=== PATIENT | female | born 1995 | race Caucasian/White ===

== ENCOUNTER 2020-08-19 17:40 | Outpatient (CLI) | payer OTHER, SELFPAY ==
[2020-08-19] VITALS (33 sets, daily range): BP systolic 110–134; BP diastolic 56–76; PULSE 93–111; RESP 18; TEMP 35.3–37.1; O2SAT 94–100; BMI 24.5
[2020-08-19] MEDS: Lactated Ringers 1,000 ML 50 ML IV (19:00)
--- NOTE | 2020-08-19 19:04 | OB.TRI.HP_ITS ---
- Problem List (1) labor in third trimester Status: Acute (2) Status: Acute History of Present Illness Date of Service: 08/19/20 Was patient seen by the physician?: Yes Reason For Visit: RULE OUT LABOR Date of Service: 08/19/20 Final EL: 10/30/20 Final EL Source: LMP Gestational age: 29 Weeks and 5 Days History of Present Illness: 24-year-old G1, P0 at 29 weeks 5 days presenting for abdominal pain. Patient receives care from a restorative aide. Dated based on the last menstrual period. Patient did have an ultrasound done earlier this that was suggestive of a fibroid in the lower uterine segment. Patient reports that abdominal pain is diffuse. Reports that she had an episode of vaginal bleeding approximately 3 nights ago. Bleeding only lasted overnight and then resolved. Reports that pain then began approximately 2 days ago. Does endorse occasional abdominal tightening. She was checked by her restorative aide earlier today and was found to be 1 cm. Patient found to be robles regularly and 2/70/-2 on exam. Allergies No Known Allergies Allergy (Verified 08/19/20 18:04) Review of Systems Constitutional: Denies: Chills, Fever Cardiovascular: Denies: Chest Pain, Palpitations Respiratory: Denies: Cough Gastrointestinal: Denies: Abdominal Pain, Nausea, Vomiting Genitourinary: Denies: Dysuria, Frequency Gynecological: Denies: Vaginal bleeding, Vaginal discharge, Vaginal itching Psychiatric: Denies: Anxiety, Depression Physical Exam General: Alert, Oriented x3, Cooperative, No apparent distress, Well developed, Well nourished HEENT: Atraumatic, PERRLA, EOMI, Normocephalic Cardiovascular: Regular rate Lungs: Normal air movement Abdomen: Soft, Non-Distended, Tender - mildly TTP diffusely, Appropriate for Gestational Age Extremities:: No edema Neurological: Cranial nerves II-XII grossly intact, Neuro grossly intact 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 -Patient does have a known lower uterine segment fibroid per her restorative aide, however no ultrasound records available at this prior imaging. -Discussed with patient that given that she is 2 cm dilated and robles, I am concerned for labor. Discussed that I recommend that she be transferred to a higher level of care for treatment of labor to ensure that there are adequate NICU capabilities if she were to deliver. All questions answered. -Magnesium sulfate started for neuroprotection. -Loading dose of indomethacin given for tocolysis. -Betamethasone administered for lung maturity. -Penicillin started for GBS prophylaxis. -Vertex by bedside ultrasound. -Patient discussed with Dr. Trivedi for maternal- medicine who accepts the transport. Multi Select Codes - Visit Charges Office Visit/Consults: 78367 OV L3 New - Urinary/Genital Urinary/Genital CPT Codes: 27292-28 non-stress test Interp
[2020-08-19] MEDS: Betamethasone/Betamethasone 30 MG/5 ML Vial 12 MG IM (19:10)
[2020-08-19] MEDS: Magnesium Sulfate 4gm/100mL 4 GM/100 ML IV.SOLN. IV (19:11)
[2020-08-19 19:29] LABS: Absolute Lymphocyte Count 1.82 X10^3/uL (0.83-4.51); Absolute Neutrophil Count 8.8 X10^3/uL (2.0-7.7); Basophil# 0.06 X10^3/uL; Basophil% 0.5 % (0-1); Eosinophil# 0.11 X10^3/uL; Eosinophils% 0.9 % (0-5); Hematocrit 32.4 % (37-47); Hemoglobin 11.1 g/dL (12.0-15.0); Lymphocyte # 1.82 X10^3/ul (4.0); Lymphocyte % 15.2 % (19-41); Mean Corp Hgb Conc 34.3 g/dL (32-36); Mean Corpuscular Hgb 30.7 pg (27.0-32.0); Mean Corpuscular Volume 89.8 fL (81-99); Mean Platelet Vol. 8.2 fl (6.2-12.0); Monocyte% 6.7 % (0-10); NRBC Flagged by Analyzer 0 % (0-5); Neutrophil # 8.75 X10^3/uL (2.7-7.7); Neutrophil % 73.1 % (47-70); Platelet Count 187 K/mm3 (150-450); RBC Distribution Width SD 42.1 fl (35.1-43.9); Red Blood Count 3.61 M/mm3 (4.2-5.4)
[2020-08-19] MEDS: Magnesium Sulfate 4gm/100mL 2 GM/50 ML IV.SOLN. IV (19:39)
[2020-08-19] MEDS: Indomethacin 25 MG Capsule 50 MG PO (19:42)
[2020-08-19] MEDS: Magnesium Sulfate 20 GM/500 ML BAG IV (19:49)
== END 2020-08-19 21:35 | disposition short-term general hospital (02) ==
LOC: WPOUT 18:02 → WP 18:02
PROVIDERS: Visit Provider Obstetrics & Gynecology
DX: O60.03 Preterm labor without delivery, third trimester (principal); Z3A.29 29 weeks gestation of pregnancy
CPT/HCPCS: 96360; 96361; 59025; 59050; 85025; 86850; 86900; 86901; 96372; 99218; J7120; G0378; J0702

== ENCOUNTER 2020-09-09 15:35 | Outpatient (CLI) | payer SELFPAY ==
[2020-09-09 15:33] VITALS: BMI 25.4
[2020-09-09 15:45] VITALS: BMI 22.6
[2020-09-09 16:02] VITALS: BP 111/68; PULSE 100
[2020-09-09] MEDS: Lactated Ringers 1,000 ML 999 ML IV (16:17)
--- NOTE | 2020-09-09 16:17 | US_ITS ---
We are attempting to reach an attending provider to discuss findings. An addendum with communication details will be sent when the communication is complete. STUDY: SECOND AND THIRD TRIMESTER OBSTETRICAL ULTRASOUND - LIMITED REASON FOR EXAM: Female, 24 years old. well being. Vaginal bleeding since Saturday. labor. History of uterine fibroid. LMP: 01/24/2020. PRIOR ULTRASOUND: None. TECHNIQUE: Transabdominal TECHNICAL QUALITY: Adequate. FINDINGS: There is a single intrauterine fetus. The fetus is in a cephalic presentation. There is demonstrated cardiac activity with a heart rate of 153 bpm. There is a normal amniotic fluid volume. The largest amniotic fluid pocket measures 2.67 cm. The amniotic fluid index (CRISTINA) is 8.5 to cm. The placenta is fundal and anterior are not low lying. There are Grade 1 placental changes. The cervix measures 3.45 cm in length. The cervix appears open. There is a 6.7 x 9.5 x 6.1 cm mass, thought to be a fibroid, in the anterior uterine wall. Age by LMP: 32 weeks, 5 days. EL by LMP: 10/30/2020. US/OB Limited (No Biometrics) IMPRESSION: 1. Limited OB ultrasound. 2. What appears to be an open cervix measuring 3.45 cm in length. 3. Live single intrauterine in a vertex presentation. Fetus is 32 weeks 5 days by last menstrual period. 4. CRISTINA of 8.52 cm. Fundal anterior grade 1 placenta. 5. Probable anterior uterine fibroid. Electronically Signed: Zaki Thompson DO at 18:16 EST Tel [phone], Service support ,
[2020-09-09 16:42] LABS: Absolute Neutrophil Count 7.7 X10^3/uL (2.0-7.7); Basophil# 0.05 X10^3/uL; Basophil% 0.5 % (0-1); Eosinophil# 0.08 X10^3/uL; Eosinophils% 0.7 % (0-5); Hematocrit 29.4 % (37-47); Hemoglobin 10.1 g/dL (12.0-15.0); Lymphocyte % 16.7 % (19-41); Mean Corp Hgb Conc 34.4 g/dL (32-36); Mean Corpuscular Hgb 31.1 pg (27.0-32.0); Mean Corpuscular Volume 90.5 fL (81-99); Mean Platelet Vol. 8.5 fl (6.2-12.0); Monocyte# 0.77 X10^3/uL; Monocyte% 7.1 % (0-10); NRBC Flagged by Analyzer 0 % (0-5); Neutrophil % 71.4 % (47-70); Platelet Count 183 K/mm3 (150-450); RBC Distribution Width CV 13.6 % (11.6-14.6); RBC Distribution Width SD 44.7 fl (35.1-43.9); Red Blood Count 3.25 M/mm3 (4.2-5.4); White Blood Count 10.8 K/mm3 (4.4-11.0)
[2020-09-09 16:55] LABS: Prothrombin Time (Protime)PT. 12.5 SECONDS (11.7-14.9)
--- NOTE | 2020-09-09 16:55 | PCM.HPOB.BLA ---
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 Dee Quintanilla MD) History of thyroid disorder (Acute) Family History (Updated 09/09/20 @ 14:45 by Katya Spring) Unknown Diabetes Hypertension Social History (Updated 09/09/20 @ 16:[address] 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 today she saturated the equivalent of a large pad. she has had mild contractions no known LOF. she has good fm. she was [facility] and was discharged home after being stable. OB Visit EL Calculator Estimated Delivery Date Method Current WG Current Estimate 10/28/20 LMP (Certain) 33w 0d Initial Weight: Not Recorded Date EGA Weight BP Urine Prot Glucose FHR FuHt Pres Dilation Effaced St Visit Note 09/09/20 33w 0d 130 lb 122/76 150 SM- admitted for bleeding. Diagnostics Diagnostics Diagnostics Blood Type Pending 09/09/20 Antibody Screen Pending 09/09/20 Hgb Pending 09/09/20 Hct Pending 09/09/20 Details: HIV: Urine Culture: Sequential Screen: NIPT Screen: ROS Const Reports as per HPI, Denies fever(s) ENT Reports system reviewed and no additional complaints, except as docu Card Reports system reviewed and no additional complaints, except as docu Resp Reports system reviewed and no additional complaints, except as docu GI Reports as per HPI Reports as per HPI, Reports abnormal vaginal bleeding Musc Reports system reviewed and no additional complaints, except as docu Skin/Breast Reports system reviewed and no additional complaints, except as docu Neuro Yes system reviewed and no additional complaints, except as docu Endo Reports system reviewed and no additional complaints, except as docu Exam Const General: healthy appearing, comfortable, no acute distress HENMT Head: normal to inspection, normocephalic Neck Neck: no lymphadenopathy noted Thyroid: thyroid normal Chest Chest palpation & inspection: normal inspection of the chest Resp Effort & Inspection: normal respiratory effort Cardio Rate: regular rate Rhythm: regular rhythm GI Inspection: normal to inspection Palpation: soft, nontender External Female Exam: normal external appearance Speculum Exam - Vagina: normal appearance of the vagina, vaginal bleeding Bimanual Exam- Vagina & Uterus: uterine shape normal, uterus non-tender OB/External & Speculum: vaginal bleeding Speculum Exam: vaginal bleeding Skin General: no rashes or lesions noted Neuro General: no focal motor deficits Extrem General: normal to inspection, no pedal edema Psych Appearance: grossly normal Assessment & Plan Problems 1. labor in third trimester O60.03 stable 3 cm 2. Placental abruption in third trimester O45.93 recommend STO and serial labs 3. Z34.90 previous care with [facility] 4. Uterine fibroid during , antepartum O34.10; D25.9 right lower anterior Plan plan admit for STO s/p bmz two weeks ago covid testing ultrasound. serial labs and continuous monitoring Coding Level of Care Code OB Routine Diagnoses labor in third trimester O60.03 Placental abruption in third trimester O45.93 Z34.90 Uterine fibroid during , antepartum O34.10; D25.9 Multi Select Codes - Visit Charges Observation E&M Codin Initial observation care L3
[2020-09-09 16:56] LABS: Partial Thromboplast Time 24.5 Seconds (24.1-36.2)
[2020-09-09 17:00] LABS: Fibrinogen 613 mg/dl (203-444)
[2020-09-09] MEDS: Lactated Ringers 1,000 ML 15 ML IV (17:25)
[2020-09-09 19:20] VITALS: BP 118/68; PULSE 100
[2020-09-09 19:21] VITALS: TEMP 36.7; O2SAT 97
[2020-09-09] MEDS: Lactated Ringers 500 ML IV.SOLN. IV (22:28)
[2020-09-09] MEDS: Lactated Ringers 1,000 ML 100 ML IV (23:05)
[2020-09-10] VITALS (11 sets, daily range): BP systolic 89–120; BP diastolic 52–87; PULSE 82–97; RESP 16; TEMP 35.7–36.9; O2SAT 97–99
[2020-09-10 04:11] LABS: Hematocrit 26.9 % (37-47); Hemoglobin 8.9 g/dL (12.0-15.0); Mean Corp Hgb Conc 33.1 g/dL (32-36); Mean Corpuscular Hgb 30.4 pg (27.0-32.0); Mean Corpuscular Volume 91.8 fL (81-99); Mean Platelet Vol. 8.5 fl (6.2-12.0); Platelet Count 141 K/mm3 (150-450); RBC Distribution Width CV 13.7 % (11.6-14.6); RBC Distribution Width SD 45.4 fl (35.1-43.9); Red Blood Count 2.93 M/mm3 (4.2-5.4); White Blood Count 9.3 K/mm3 (4.4-11.0)
[2020-09-10 04:23] LABS: Fibrinogen 521 mg/dl (203-444)
--- NOTE | 2020-09-10 08:00 | US_ITS ---
STUDY: OBSTETRICAL ULTRASOUND - BIOPHYSICAL PROFILE REASON FOR EXAM: Female, 24 years old WELL BEING LMP: 01/24/2020 PRIOR ULTRASOUND: 09/09/2020 TECHNIQUE: Transabdominal TECHNICAL QUALITY: Adequate. FINDINGS: There is a single intrauterine fetus. The fetus is in a cephalic presentation. There is demonstrated cardiac activity with a heart rate of 153 bpm. There is a normal amniotic fluid volume. The largest amniotic fluid pocket measures 4.9 cm. The amniotic fluid index (CRISTINA) is 11.5 cm. The placenta is fundal in location. There are Grade 1 placental changes. Within the right side of the uterus there is an 8 cm fibroid. Age by LMP: 32 weeks, 6 days. EL by LMP: 10/30/2020. BIOPHYSICAL PROFILE: Breathing Movements (FBM): 2 Gross Body Movements (GBM): 2 Tone (FT): 2 Amniotic Fluid Volume (AFV): 2 TOTAL SCORE: US/Biophysical Prof W/O Non Stres IMPRESSION: Normal biophysical profile of 05/07. Electronically Signed: Kyle Tran MD at 8:43 EST Tel , Service support ,
[2020-09-10] MEDS: Lactated Ringers 1,000 ML 100 ML IV ×2 (11:35→12:07)
[2020-09-10] MEDS: Sodium Ferric Gluconat 250 MG in 0.9% Normal Saline 250 ML 135 MG IV (13:29)
--- NOTE | 2020-09-10 14:14 | PN.OBGYN_ITS ---
Patient Problems: Active and Suspected Problems (Last Updated 09/09/20 @ 14:45 by Katya Spring) Uterine fibroid during , antepartum (Acute) right lower anterior Placental abruption in third trimester (Acute) recommend STO and serial labs labor in third trimester (Acute) stable 3 cm (Acute) previous care with [facility] Subjective: minimal bleeding only brown discharge, no ctx good fm no LOF overnight- 4 prolonged decels down to 60s-70s lasting 4-5 minutes with good recovery and moderate variability, reactive tracing after. - Physical Exam Vitals/I&O's: Vital Signs Temp Pulse Resp BP Pulse Ox 97.4 F L 89 16 108/58 L 98 09/10/20 11:39 09/10/20 11:40 09/10/20 11:39 09/10/20 11:39 09/10/20 11:40 Oxygen Delivery Method Room Air Weight: 127 lb 10.362 oz Body Mass Index (BMI) 22.6 Intake and Output for Last 24 Hours 09/08/20 09/09/20 09/10/20 23:59 23:59 23:59 Intake Total 1075.75 / 1075.75 1000 / 1000 Balance 1075.75 / 1075.75 1000 / 1000 General: Alert, Oriented x3 Abdomen: Soft, Non Tender, Gravid Extremities: No edema Microbiology Past 72 Hours 09/09/20 16:35 Mucosa - Nose SARS-CoV-2 Antigen (Rapid) - Final Laboratory Results 09/09/20 16:05: Blood Type B POSITIVE, Antibody Screen NEGATIVE 09/09/20 16:05: WBC 10.8, RBC 3.25 L, Hgb 10.1 L, Hct 29.4 L, MCV 90.5, MCH 31.1, MCHC 34.4, RDW Std Deviation 44.7 H, RDW Coeff of Valerie 13.6, Plt Count 183, MPV 8.5, Immature Gran % (Auto) 3.600 H, Neut % (Auto) 71.4 H, Lymph % (Auto) 16.7 L, Wilkinson % (Auto) 7.1, Eos % (Auto) 0.7, Baso % (Auto) 0.5, Absolute Neuts (auto) 7.7, Absolute Lymphs (auto) 1.80, Nucleated RBC % 0 09/09/20 16:05: PT 12.5, INR 1.0, APTT 24.5, Fibrinogen 613 H 09/10/20 04:03: WBC 9.3, RBC 2.93 L, Hgb 8.9 L, Hct 26.9 L, MCV 91.8, MCH 30.4, MCHC 33.1, RDW Std Deviation 45.4 H, RDW Coeff of Valerie 13.7, Plt Count 141 L, MPV 8.5 09/10/20 04:03: Fibrinogen 521 H Current Medications Lactated Ringer's () 1,000 mls @ 15 mls/hr IV .Q48H [facility] Last Admin: 09/10/20 11:35 Dose: 100 mls/hr Documented by: Lactated Ringer's () 1,000 mls @ 100 mls/hr IV .Q10H [facility] Last Admin: 09/10/20 12:07 Dose: 100 mls/hr Documented by: Ferric Sodium Gluconate Complex 125 mg/ Sodium Chloride 110 mls @ 110 mls/hr IV X1 ONE Stop: 09/10/20 16:29 Ferric Sodium Gluconate Complex 250 mg/ Sodium Chloride 270 mls @ 135 mls/hr IV X1 ONE Stop: 09/10/20 15:29 Last Admin: 09/10/20 13:29 Dose: 135 mls/hr Documented by: Medical Necessity - Tobacco Use Smoking Status: Never smoker Assessment/Plan All Active Problems (Last Updated 09/09/20 @ 14:45 by Katya Spring) Uterine fibroid during , antepartum (Acute) Placental abruption in third trimester (Acute) labor in third trimester (Acute) (Acute) 24-year-old G1, P0 at 32 weeks 4 days presents with vaginal bleeding, suspected chronic abruption Patient has large uterine fibroid, placenta is implanted on the opposite side of the uterus from this. Patient has had threatened labor but has made no cervical change. Fibrinogen is stable. Patient has anemia likely secondary to chronic blood loss in the with abruption. Will give IV Venofer for this. Biophysical profile 8 out of 8 and overall reassuring today. Continuous monitoring overall reassuring. Discussed with the patient and her unclear significance of heart rate decelerations although I am concerned this is due to to chronic placental abruption that increases the risk for compromise or demise and maternal complication of hemorrhage. 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 I discussed the risk of loss if she leaves at this point because I cannot guarantee the safety of the and she lives 30 minutes away. Multi Select Codes - Visit Charges Observation E&M Codin Subsequent observation care L3 - Urinary/Genital Urinary/Genital CPT Codes: 97567-28 non-stress test Interp
[2020-09-10] MEDS: Sodium Ferric Gluconat 125 MG in 0.9% Normal Saline 100 ML 110 MG IV (15:26)
[2020-09-10] MEDS: 0.9% Saline Lock 10 ML Syringe IV (21:25)
[2020-09-11 03:09] VITALS: BP 99/58; PULSE 88; TEMP 36.4; O2SAT 98; O2SAT 99
[2020-09-11 06:26] LABS: Absolute Lymphocyte Count 1.65 X10^3/uL (0.83-4.51); Absolute Neutrophil Count 7.4 X10^3/uL (2.0-7.7); Basophil# 0.08 X10^3/uL; Basophil% 0.8 % (0-1); Eosinophil# 0.11 X10^3/uL; Eosinophils% 1.1 % (0-5); Hemoglobin 9.6 g/dL (12.0-15.0); Lymphocyte # 1.65 X10^3/ul (4.0); Lymphocyte % 15.8 % (19-41); Mean Corp Hgb Conc 34.3 g/dL (32-36); Mean Corpuscular Hgb 31.7 pg (27.0-32.0); Mean Corpuscular Volume 92.4 fL (81-99); Monocyte# 0.74 X10^3/uL; Monocyte% 7.1 % (0-10); NRBC Flagged by Analyzer 0 % (0-5); Neutrophil # 7.41 X10^3/uL (2.7-7.7); Neutrophil % 70.8 % (47-70); Platelet Count 166 K/mm3 (150-450); RBC Distribution Width CV 14.1 % (11.6-14.6); RBC Distribution Width SD 46.4 fl (35.1-43.9); Red Blood Count 3.03 M/mm3 (4.2-5.4); White Blood Count 10.5 K/mm3 (4.4-11.0)
[2020-09-11 07:05] LABS: Fibrinogen 603 mg/dl (203-444)
--- NOTE | 2020-09-11 07:33 | PN.OBGYN_ITS ---
Patient Problems: Active and Suspected Problems (Last Updated 09/09/20 @ 14:45 by Katya Spring) Uterine fibroid during , antepartum (Acute) right lower anterior Placental abruption in third trimester (Acute) recommend STO and serial labs labor in third trimester (Acute) stable 3 cm (Acute) previous care with [facility] Subjective: patient denies signficant bleeding no lof good fm no regular ctx, no pain Objective: fht 130 moderate variability reactive no decelerations category I tracing. 3 isolated decels overnight prolonged 3-4 minutes to 70s, good recovery [place]: no regular now ,some irritability overnight - Physical Exam Vitals/I&O's: Vital Signs Temp Pulse Resp BP Pulse Ox 97.6 F L 88 16 99/58 L 98 09/11/20 03:09 09/11/20 03:09 09/10/20 15:10 09/11/20 03:09 09/11/20 03:09 Oxygen Delivery Method Room Air Weight: 127 lb 10.362 oz Body Mass Index (BMI) 22.6 Intake and Output for Last 24 Hours 09/09/20 09/10/20 09/11/20 23:59 23:59 23:59 Intake Total 1075.75 / 1075.75 3286.58 / 3286.58 Balance 1075.75 / 1075.75 3286.58 / 3286.58 General: Alert, Oriented x3 Lungs: Normal air movement Cardiovascular: Regular rate Abdomen: Soft, Non Tender Microbiology Past 72 Hours 09/09/20 16:35 Mucosa - Nose SARS-CoV-2 Antigen (Rapid) - Final Laboratory Results 09/11/20 06:10: Fibrinogen 603 H 09/11/20 06:10: WBC 10.5, RBC 3.03 L, Hgb 9.6 L, Hct 28.0 L, MCV 92.4, MCH 31.7, MCHC 34.3, RDW Std Deviation 46.4 H, RDW Coeff of Valerie 14.1, Plt Count 166, MPV 9.0, Immature Gran % (Auto) 4.400 H, Neut % (Auto) 70.8 H, Lymph % (Auto) 15.8 L , Anderson % (Auto) 7.1, Eos % (Auto) 1.1, Baso % (Auto) 0.8, Absolute Neuts (auto) 7.4, Absolute Lymphs (auto) 1.65, Nucleated RBC % 0 Current Medications Lactated Ringer's () 1,000 mls @ 15 mls/hr IV .Q48H [facility] Last Infusion: 09/10/20 21:25 Dose: Infused Documented by: Lactated Ringer's () 1,000 mls @ 100 mls/hr IV .Q10H [facility] Last Infusion: 09/10/20 21:25 Dose: Infused Documented by: Sodium Chloride (0.9% Saline Lock 10 Ml Syringe) 5 - 10 ml IV PRN PRN PRN Reason: IV flush Last Admin: 09/10/20 21:25 Dose: 10 ml Documented by: Medical Necessity - Tobacco Use Smoking Status: Never smoker Assessment/Plan All Active Problems (Last Updated 09/09/20 @ 14:45 by Katya Spring) Uterine fibroid during , antepartum (Acute) Placental abruption in third trimester (Acute) labor in third trimester (Acute) (Acute) 24-year-old G1, P0 at 32 weeks 5 days presents with vaginal bleeding, suspected chronic abruption Patient has large uterine fibroid, placenta is implanted on the opposite side of the uterus from this. Patient has had threatened labor but has made no cervical change. Fibrinogen is stable. Patient has anemia likely secondary to chronic blood loss in the with abruption. s/p IV Venofer for this. Biophysical profile 8 out of 8 yesterday will repeat today. Continuous monitoring overall reassuring. discussed option of outpatient managment with twice weekly testing and needs evaluation if any bleeding or decreased fm. if reassuring BPP will dc home today. Multi Select Codes - Visit Charges Observation E&M Codin Observation care discharge
--- NOTE | 2020-09-11 07:36 | DS.PCM_ITS ---
Discharge Date and Diagnosis - Problem List Patient Problems: Active and Suspected Problems (Last Updated 09/09/20 @ 14:45 by Katya Spring) Uterine fibroid during , antepartum (Acute) right lower anterior Placental abruption in third trimester (Acute) recommend STO and serial labs labor in third trimester (Acute) stable 3 cm (Acute) previous care with [facility] Date of Admission: 09/09/20 Date of Discharge: 09/11/20 - Primary Discharge Diagnosis Acute Problems: Active Problems (Last Updated 09/09/20 @ 14:45 by Katya Spring) Uterine fibroid during , antepartum (Acute) right lower anterior Placental abruption in third trimester (Acute) recommend STO and serial labs labor in third trimester (Acute) stable 3 cm (Acute) previous care with [facility] Course and Treatment Imaging Results: 09/11/20 08:00 Biophysical Prof W/O Non Stres [US] Urgent Operations: None Procedures: None Summary of Care Provided: The patient is a 24 year old F presented with acute vaginal bleeding in . She had had threatened labor and received steroids several weeks prior. Upon this admission she had made no cervical change from previous evaluation of 2 to 3 cm and was not having regular contractions but had a large amount of blood present at the time of exam in the office. Suspected abruption was diagnosed and she was found to be anemic and given IV Venofer. Prolonged monitoring was done for 48 hours and an intermittent prolonged decelerations (decreasing in frequency the second night) were seen with good recovery and overall reassuring heart tones. Serial BPP evaluations were reassuring. Patient has prefer intensive outpatient monitoring of her inpatient will DC to home, discussed with her medical office rep and will follow up for twice weekly testing. Patient Problems: Active and Suspected Problems (Last Updated 09/09/20 @ 14:45 by Katya Spring) Uterine fibroid during , antepartum (Acute) right lower anterior Placental abruption in third trimester (Acute) recommend STO and serial labs labor in third trimester (Acute) stable 3 cm (Acute) previous care with [facility] - Physical Exam Vitals/I&O's: Vital Signs Temp Pulse Resp BP Pulse Ox 97.6 F L 88 16 99/58 L 98 09/11/20 03:09 09/11/20 03:09 09/10/20 15:10 09/11/20 03:09 09/11/20 03:09 Oxygen Delivery Method Room Air Weight: 127 lb 10.362 oz Body Mass Index (BMI) 22.6 Intake and Output for Last 24 Hours 09/09/20 09/10/20 09/11/20 23:59 23:59 23:59 Intake Total 1075.75 / 1075.75 3286.58 / 3286.58 Balance 1075.75 / 1075.75 3286.58 / 3286.58 Microbiology Past 72 Hours 09/09/20 16:35 Mucosa - Nose SARS-CoV-2 Antigen (Rapid) - Final Laboratory Results 09/11/20 06:10: Fibrinogen 603 H 09/11/20 06:10: WBC 10.5, RBC 3.03 L, Hgb 9.6 L, Hct 28.0 L, MCV 92.4, MCH 31.7, MCHC 34.3, RDW Std Deviation 46.4 H, RDW Coeff of Valerie 14.1, Plt Count 166, MPV 9.0, Immature Gran % (Auto) 4.400 H, Neut % (Auto) 70.8 H, Lymph % (Auto) 15.8 L , Nuckolls % (Auto) 7.1, Eos % (Auto) 1.1, Baso % (Auto) 0.8, Absolute Neuts (auto) 7.4, Absolute Lymphs (auto) 1.65, Nucleated RBC % 0 Current Medications Lactated Ringer's () 1,000 mls @ 15 mls/hr IV .Q48H [facility] Last Infusion: 09/10/20 21:25 Dose: Infused Documented by: Lactated Ringer's () 1,000 mls @ 100 mls/hr IV .Q10H [facility] Last Infusion: 09/10/20 21:25 Dose: Infused Documented by: Sodium Chloride (0.9% Saline Lock 10 Ml Syringe) 5 - 10 ml IV PRN PRN PRN Reason: IV flush Last Admin: 09/10/20 21:25 Dose: 10 ml Documented by: Discharge Diet: No Restrictions Discharge Activity: - - modified bed rest May resume sexual activity in: 6-8 weeks Weight Bearing Status: Full weight bearing Call your doctor if you observe: - - vaginal bleeding, decreased movement, regular ctx Home Medications: Medications to take at Discharge ferrous sulfate 325 mg (65 mg iron) tablet 325 mg PO DAILY 09/09/20 omega-3 fatty acids 1,000 mg capsule 1,000 mg PO DAILY 09/09/20 vitamin#30 30 mg iron-10 mg iron-folic acid 1 mg-omg3 capsule 1 cap PO DAILY 09/09/20 Primary Care Physician: Care Physician,No Primary [Primary Care Provider] - Please Follow Up With: Dee Quintanilla MD - twice weekly nsts in office Disposition: Home Patient Condition:: Stable Medical Necessity - Tobacco Use Smoking Status: Never smoker Meaningful Use Info Meaningful Use Diagnoses (Choose all that apply): None applicable
--- NOTE | 2020-09-11 07:42 | DCINST_ITS ---
- Discharge Diagnoses Current Active Problems: Current Active and Chronic Problems (Last Updated 09/09/20 @ 14:45 by Katya Spring) Uterine fibroid during , antepartum (Acute) right lower anterior Placental abruption in third trimester (Acute) recommend STO and serial labs labor in third trimester (Acute) stable 3 cm (Acute) previous care with [facility] You will use the following diet at home:: No restrictions Your food should be the consistency of: Regular Discharge Activity: - - modified bed rest May resume sexual activity in: 6-8 weeks Weight Bearing Status: Full weight bearing Call your doctor if you observe: - - vaginal bleeding, decreased movement, regular ctx Allergies/Adverse Reactions: Allergies No Known Allergies Allergy (Verified 09/09/20 14:43) Medications to take at Discharge ferrous sulfate 325 mg (65 mg iron) tablet 325 mg PO DAILY 09/09/20 omega-3 fatty acids 1,000 mg capsule 1,000 mg PO DAILY 09/09/20 vitamin#30 30 mg iron-10 mg iron-folic acid 1 mg-omg3 capsule 1 cap PO DAILY 09/09/20 Primary Care Physician: Care Physician,No Primary [Primary Care Provider] - Test Results: Test results from this visit will be discussed in further detail at your follow- up appointment, if applicable. Please Follow Up With: Dee Quintanilla MD - twice weekly nsts in office
[2020-09-11 07:49] VITALS: TEMP 36.8
[2020-09-11 07:50] VITALS: BP 112/56; PULSE 93
[2020-09-11 07:51] VITALS: PULSE 97; O2SAT 97
--- NOTE | 2020-09-11 08:00 | US_ITS ---
STUDY: OBSTETRICAL ULTRASOUND - BIOPHYSICAL PROFILE REASON FOR EXAM: Female, 24 years old WELL BEING LMP: 01/24/2020 PRIOR ULTRASOUND: 09/10/2020 TECHNIQUE: Transabdominal TECHNICAL QUALITY: Adequate. FINDINGS: There is a single intrauterine fetus. The fetus is in a cephalic presentation. There is demonstrated cardiac activity with a heart rate of 157 bpm. There is a normal amniotic fluid volume. The largest amniotic fluid pocket measures 5.4 cm. The amniotic fluid index (CRISTINA) is 11.6 cm. The placenta is anterior in location and is not low lying. There are Grade 1 placental changes. Age by LMP: 33 weeks, 0 days. EL by LMP: 10/30/2020. BIOPHYSICAL PROFILE: Breathing Movements (FBM): 2 Gross Body Movements (GBM): 2 Tone (FT): 2 Amniotic Fluid Volume (AFV): 2 TOTAL SCORE: 8 / 8 US/Biophysical Prof W/O Non Stres IMPRESSION: Normal biophysical profile of 8/8. Electronically Signed: Kyle Tran MD at 9:08 EST Tel , Service support ,
[2020-09-11 09:59] LABS: Group B Strep DNA By PCR Negative (Negative); Internal Control PASS; Probe Check PASS; Specimen Processing Control PASS
== END 2020-09-11 09:55 | disposition home or self-care (01) ==
LOC: WPOUT 15:43 → WP 15:43
PROVIDERS: Visit Provider Obstetrics & Gynecology
DX: O45.93 Premature separation of placenta, unspecified, third trimester (principal); O60.03 Preterm labor without delivery, third trimester; O34.13 Maternal care for benign tumor of corpus uteri, third trimester; D25.9 Leiomyoma of uterus, unspecified; O99.013 Anemia complicating pregnancy, third trimester; D64.9 Anemia, unspecified; Z3A.33 33 weeks gestation of pregnancy
CPT/HCPCS: 96361 ×12; 96365; 96366 ×2; 59025; 59050; 76815; 76819; 85025; 85027; 85384; 85610; 85730; 86850; 86900; 86901; 87081; 87426; 87653; J7050; J7120; A4216; J2916

== ENCOUNTER 2020-09-12 09:00 | Inpatient (IN) | payer SELFPAY ==
[2020-09-12] VITALS (90 sets, daily range): BP systolic 86–155; BP diastolic 38–87; PULSE 77–124; RESP 16–18; TEMP 36.2–37.5; O2SAT 80–100; BMI 23.6
[2020-09-12] MEDS: Lactated Ringers 1,000 ML 999 ML IV (07:55)
[2020-09-12 08:07] LABS: Absolute Lymphocyte Count 1.71 X10^3/uL (0.83-4.51); Absolute Neutrophil Count 9.6 X10^3/uL (2.0-7.7); Basophil# 0.07 X10^3/uL; Basophil% 0.6 % (0-1); Eosinophil# 0.09 X10^3/uL; Eosinophils% 0.7 % (0-5); Hematocrit 31.4 % (37-47); Hemoglobin 10.6 g/dL (12.0-15.0); Lymphocyte # 1.71 X10^3/ul (4.0); Lymphocyte % 13.5 % (19-41); Mean Corp Hgb Conc 33.8 g/dL (32-36); Mean Corpuscular Hgb 31.2 pg (27.0-32.0); Mean Corpuscular Volume 92.4 fL (81-99); Mean Platelet Vol. 8.5 fl (6.2-12.0); Monocyte# 0.66 X10^3/uL; Monocyte% 5.2 % (0-10); NRBC Flagged by Analyzer 0 % (0-5); Neutrophil # 9.61 X10^3/uL (2.7-7.7); Neutrophil % 76.1 % (47-70); Platelet Count 170 K/mm3 (150-450); RBC Distribution Width CV 14.2 % (11.6-14.6); RBC Distribution Width SD 46.7 fl (35.1-43.9); White Blood Count 12.6 K/mm3 (4.4-11.0)
[2020-09-12 08:25] LABS: Prothrombin Time (Protime)PT. 12.4 SECONDS (11.7-14.9)
[2020-09-12 08:26] LABS: Partial Thromboplast Time 27.8 Seconds (24.1-36.2)
[2020-09-12 08:33] LABS: Fibrinogen 698 mg/dl (203-444)
[2020-09-12] MEDS: Lactated Ringers 1,000 ML 50 ML IV (09:00)
--- NOTE | 2020-09-12 11:36 | PCM.HP.OB ---
- Problem List (1) Uterine fibroid during , antepartum Status: Acute Comment: right lower anterior (2) Placental abruption in third trimester Status: Acute Comment: recommend STO and serial labs (3) labor in third trimester Status: Acute Comment: stable 3 cm (4) Status: Acute Comment: previous care with [facility] History Date of Admission: 09/09/20 Final EL: 10/28/20 Final EL Source: LMP Gestational age: 33 Weeks and 3 Days History of this : This is a 24 year-old, presents at 33 weeks 3 days with vaginal bleeding and regular contractions she has made cervical change to 3/80/-1 station. Repeat hemoglobin and fibrinogen are higher than previous. Patient had been monitored in the hospital over the weekend due to vaginal bleeding. Patient previously received steroids 2 1/2 weeks ago. She has had a suspected chronic abruption. Medical History: Medical History (Last Updated 09/09/20 @ 14:45 by Katay Spring) History of thyroid disorder Z86.39 Allergies No Known Allergies Allergy (Verified 09/12/20 07:30) Home Medications: Home Medications ferrous sulfate 325 mg (65 mg iron) tablet 325 mg PO DAILY 09/09/20 omega-3 fatty acids 1,000 mg capsule 1,000 mg PO DAILY 09/09/20 vitamin#30 30 mg iron-10 mg iron-folic acid 1 mg-omg3 capsule 1 cap PO DAILY 09/09/20 Smoking Status: Never smoker Alcohol: None Number of Fetus(es): 1 NST - FHR Rate Baby A Baseline: 130 Variability:: Moderate Accelerations:: 15 x 15 Decelerations:: None NST Reactive:: Yes FHR Category:: Category I Uterine Activity:: q4-5 History Past Pregnancies: Past Pregnancies Delivery Date Name GA/ Weeks Outcome Route Wt Sex Labor Length Anesthesia Delivery Location Provider FOB Labs: Mom's Problem List Problem Status Onset Code Uterine fibroid during , antepartum Acute O34.10, D25.9 Placental abruption in third trimester Acute O45.93 labor in third trimester Acute O60.03 Acute Z34.90 Mom's Labs & Results 09/12/20 09/12/20 09/12/20 07:50 07:50 07:50 WBC 12.6 H RBC 3.40 L Hgb 10.6 L Hct 31.4 L MCV 92.4 MCH 31.2 MCHC 33.8 RDW Std Deviation 46.7 H RDW Coeff of Valerie 14.2 Plt Count 170 MPV 8.5 Immature Gran % (Auto) 3.900 H Neut % (Auto) 76.1 H Lymph % (Auto) 13.5 L [place] % (Auto) 5.2 Eos % (Auto) 0.7 Baso % (Auto) 0.6 Absolute Neuts (auto) 9.6 H Absolute Lymphs (auto) 1.71 Nucleated RBC % 0 PT 12.4 INR 1.0 APTT 27.8 Fibrinogen 698 H Blood Type B POSITIVE Antibody Screen NEGATIVE Course Did the patient receive Yes care? Labs Blood Type: B RH: POSITIVE HIV/AIDS Non-Reactive Group B Strep: Negative Current Obstetrical History Gestational Diabetes No Incompetent Cervix No Infertility No IUGR No Macrosomia No Hypertension/Pre-eclampsia No Placenta Previa/Abruption Yes PTL/PROM Yes Uterine anomaly Yes: Uterine fibroid on right side. Oligohydramnios No Polyhydramnios No Multiple gestation No Past Medical History Asthma No Diabetes No Hypertension No Heart disease No Mitral valve prolapse No Neurologic/Seizure disorder/ No Migraines Kidney disease No Liver disease No Varicosities No Clotting disorders/Hx of DVT No Thyroid Dysfunction No Other medical diseases No Psychiatric disorders No Major trauma No Abnormal PAP smear No Sleep apnea No Mammogram in the last 2 years No Social History Marital Status: Alleged father Royce Armas Hx Smoking No Smoking Status Never smoker Expected Delivery Method: Spontaneous Vaginal Review of Systems Constitutional: Denies: Fever, Malaise Eyes: Denies: Blurred vision, Vision Change HEENT: Denies: Head Aches, Visual Changes Cardiovascular: Denies: Chest Pain, Palpitations Respiratory: Denies: Cough, Shortness of Breath, Wheezing Gastrointestinal: Reports: Abdominal Pain. Denies: Diarrhea, Nausea, Vomiting Genitourinary: Denies: Dysuria, Hematuria Gynecological: Reports: Vaginal bleeding Musculoskeletal: Denies: Joint Pain, Muscle pain Skin: Denies: Lesions, Rash Neurological: Denies: Blurred vision, Focal weakness, Headaches Psychiatric: Denies: Anxiety, Depression Endocrine: Denies: Heat/ Cold Intolerance Hematologic/ Lymphatic: Denies: Easy Bruising, Easy Bleeding Physical Exam Vitals: Vital Signs Temp Pulse BP Pulse Ox 98.5 F 83 104/55 L 99 09/12/20 07:21 09/12/20 10:16 09/12/20 09:43 09/12/20 10:16 General: Alert, Cooperative, No apparent distress HEENT: Atraumatic, Normocephalic. Negative for: Thyromegaly, Lymphadenopathy Cardiovascular: Regular rate Lungs: Normal air movement Abdomen: Soft, Non Tender, Gravid Neurological: Deep Tendon Reflexes 2+/4 and Symmetrical, Neuro grossly intact. Negative for: Clonus HOSPITAL ADMISSIONS CLERK: Normal external genitalia. Negative for: Vulvar lesions Estimated gestational size: Appropriate for gestational size Presentation: Cephalic Cervix Dilation (cm): 3 - blood present Station: -1 Effacement (%): 80 Assessment/Plan All Active Problems (Last Updated 09/09/20 @ 14:45 by Katya Spring) Uterine fibroid during , antepartum (Acute) Placental abruption in third trimester (Acute) labor in third trimester (Acute) (Acute) This is a 24 year-old, , at 33 weeks 3d gestational age presents with PTL and vaginal bleeding. 1. labor- exp management, has received steroids and due to bleeding and possible abruption, do not recommend tocolytics. 2. chronic abruption- reassuring FHTs. follow serial labs. monitor expectantly at this time. 3. chronic anemia- s/p IV iron, Hg improve in the last few days
--- NOTE | 2020-09-12 12:44 | PN_ITS ---
Progress Note having vaginal bleeding intermittently, some clots, approximately 75cc. small cervical change to 4/80-1 current tracing: FHT: 140 Moderate variability reactive no decelerations category I tracing [place]: hard to trace but possible q 4-5 min Contractions reviewed tracing abnormalities since last note: no signfiicant abnormalities A/P: 24 yo G1Po 2 33w4d with labor, vaginal bleeding. expectant management, repeat labs ordered STROKE Vital Signs/Narrative: Vital Signs Pulse BP Pulse Ox 09/12/20 12:29 84 108/64 09/12/20 11:46 97 113/65 09/12/20 10:16 83 99 09/12/20 09:43 82 104/55 L
[2020-09-12] MEDS: Betamethasone/Betamethasone 30 MG/5 ML Vial 12 MG IM (12:55)
[2020-09-12 13:06] LABS: Hematocrit 29.7 % (37-47); Hemoglobin 10.1 g/dL (12.0-15.0); Mean Corpuscular Hgb 30.9 pg (27.0-32.0); Mean Corpuscular Volume 90.8 fL (81-99); Mean Platelet Vol. 8.5 fl (6.2-12.0); Platelet Count 162 K/mm3 (150-450); RBC Distribution Width CV 14.1 % (11.6-14.6); RBC Distribution Width SD 45.3 fl (35.1-43.9); Red Blood Count 3.27 M/mm3 (4.2-5.4); White Blood Count 12.6 K/mm3 (4.4-11.0)
[2020-09-12 13:48] LABS: Rubella IgG Non-Reactive (Nonreactive)
[2020-09-12 14:26] LABS: HIV - WCH Non-Reactive (Nonreactive); Hepatitis B Surface Antigen Non-Reactive (Nonreactive); Hepatitis C Antibody Non-Reactive (Nonreactive)
[2020-09-12 16:13] LABS: Chlamydia Trachomatis by PCR Negative (Negative); Neisserai gonorrhoeae by PCR Negative (Negative); Probe Check PASS; Sample Adequacy Control PASS; Specimen Processing Control PASS
[2020-09-12] MEDS: Lactated Ringers 1,000 ML 200 ML IV (16:30)
[2020-09-12] MEDS: Lactated Ringers 500 ML 999 ML IV (17:00)
--- NOTE | 2020-09-12 17:08 | PCM.PN.BLA ---
Progress Note increased vaginal bleeding approximately 150cc. increased contractions and pain current tracing: FHT: 140 Moderate variability reactive early decelerations category I tracing [place]: q 2-3 Contractions reviewed tracing abnormalities since last note: early decels some periods of minimal variability A/P: 24 yo @ 33w3d presents with PTL and vaginal bleeding, abruption type and cross 2 units, encourage epidural, discussed increased risk for c section due to bleeding. STROKE Vital Signs/Narrative: Vital Signs Temp Pulse BP 09/12/20 15:50 91 127/77 H 09/12/20 13:55 99.5 F H 90 119/67
[2020-09-12] MEDS: fentaNYL-bupivacaine (epidural) 100 ML BAG EPIDURAL (17:52)
[2020-09-12 18:17] LABS: Absolute Lymphocyte Count 1.81 X10^3/uL (0.83-4.51); Absolute Neutrophil Count 12.9 X10^3/uL (2.0-7.7); Basophil# 0.06 X10^3/uL; Basophil% 0.4 % (0-1); Eosinophil# 0.01 X10^3/uL; Eosinophils% 0.1 % (0-5); Hematocrit 28.7 % (37-47); Hemoglobin 9.6 g/dL (12.0-15.0); Lymphocyte # 1.81 X10^3/ul (4.0); Lymphocyte % 11.7 % (19-41); Mean Corp Hgb Conc 33.4 g/dL (32-36); Mean Corpuscular Hgb 30.6 pg (27.0-32.0); Mean Corpuscular Volume 91.4 fL (81-99); Mean Platelet Vol. 8.6 fl (6.2-12.0); Monocyte# 0.31 X10^3/uL; NRBC Flagged by Analyzer 0 % (0-5); Neutrophil # 12.88 X10^3/uL (2.7-7.7); Platelet Count 149 K/mm3 (150-450); RBC Distribution Width CV 14.2 % (11.6-14.6); RBC Distribution Width SD 46.3 fl (35.1-43.9); Red Blood Count 3.14 M/mm3 (4.2-5.4); White Blood Count 15.5 K/mm3 (4.4-11.0)
[2020-09-12] MEDS: Amnioinfusion- 0.9% NS 1,000 ML IV.SOLN. 300 ML INTRA-UTER (18:40)
[2020-09-12 18:49] LABS: Fibrinogen 702 mg/dl (203-444)
[2020-09-12] MEDS: Oxytocin 30 units/NS 500 ml 30 UNITS/500 ML IV.SOLN 334 UNITS IV (19:05)
[2020-09-12] MEDS: Methylergonovine 0.2 MG/ML Ampul IM (19:16)
[2020-09-12] MEDS: Carboprost Tromethamine 250 MCG/ML Ampul IM (19:28)
--- NOTE | 2020-09-12 19:41 | PCM.OPRPT ---
Problem List (1) Uterine fibroid during , antepartum Status: Acute Comment: right lower anterior (2) Placental abruption in third trimester Status: Acute Comment: recommend STO and serial labs (3) labor in third trimester Status: Acute Comment: stable 3 cm (4) Status: Acute Comment: [facility] care with [facility] (5) hemorrhage Status: Acute (6) Uterine atony Status: Acute (7) Acute on chronic anemia Status: Chronic Vaginal Delivery Maternal Presentation: Active Labor PTL IAL 33w3d Medical Reason for Induction: - - abruption, uterine fibroid Amniotic Membrane Rupture Type: Artificial Amniotic Fluid Description: Bloody Final EL: 10/28/20 Gestational age: 33 Weeks and 3 Days Date of Procedure: 09/12/20 Pre-Operative Diagnosis: uterine fibroid, abruption, PTL, anemia Post-Operative Diagnosis: same plus hemorrhage Surgery/ Procedure Performed: Spontaneous Vaginal Delivery Type of Anesthesia: Epidural, Local with 1% lidocaine Description of Procedure: 24-year-old G1, P0 at 33 weeks 3 days presented with vaginal bleeding and labor contractions. Patient proceeded to 5 to 6 cm dilation, she had significant bleeding throughout the labor process was suspected abruption versus bleeding from the uterine fibroid present. Artificial rupture membranes for blood-tinged fluid was found but at the time reassuring heart tones were seen. Patient developed periodic recurrent variable decelerations and in the amnioinfusion was started and patient was found to be 8 to 9 cm. With position changes and IV fluids and amnioinfusion patient proceeded to complete dilation and began pushing. Due to the variable decelerations a midline episiotomy was cut after 1% lidocaine was injected in the perineum. Patient pushed and delivered direct OP the head was delivered atraumatically and a loose nuchal cord ?1 was identified and the delivered through. The anterior and posterior shoulders delivered without complication followed by the rest of the and the was placed on the maternal abdomen. Delayed cord clamping was employed for approximately 60 seconds. Cord was clamped and cut and gentle traction was applied to the cord and the placenta delivered spontaneously immediately following it was noted to be intact with three-vessel cord. The perineum and vagina were inspected and noted to have a second-degree perineal laceration that was repaired in the usual fashion with 3-0 Vicryl repeat. Uterine atony and hemorrhage was encountered and Methergine, Hemabate, tranexamic acid, bimanual massage, and Pitocin were given. It was attempted to place a Bocker balloon but due to location of the fibroid the Rosas balloon was not able to be placed around it and bleeding then slowed to a small amount.. EBL was 600 cc for delivery which she had at least 600 throughout the labor process total. Sponge lap needle counts were correct. Due to the amount of blood loss and pre-existing chronic anemia patient will be transfused 1 unit with an additional 1 unit on hold. Labs sent for evaluation. Patient and tolerated delivery well. Presentation: ROP Placental Delivery Description: Spontaneous Placenta Disposition: [facility] Cord Vessel Description: 3 Vessels Cord Entanglement: Around neck x 1, loose Estimated Blood Loss: 600 Infant A gender: Male Episiotomy Description: Midline, Perineal Extension/lac, 2nd degree Medications given after delivery: IV Pitocin, IM Methergin, IM Hemabate, - - tranexamic acid, pitocin, bimanual massage Complications: - - uterine atony hemorrhage, fibroid. Multi Select Codes - Urinary/Genital Urinary/Genital CPT Codes: 48632 Vaginal Delivery [facility]
[2020-09-12 19:58] LABS: Absolute Lymphocyte Count 1.71 X10^3/uL (0.83-4.51); Absolute Neutrophil Count 14.3 X10^3/uL (2.0-7.7); Basophil# 0.04 X10^3/uL; Basophil% 0.2 % (0-1); Eosinophil# 0.01 X10^3/uL; Eosinophils% 0.1 % (0-5); Hematocrit 23.6 % (37-47); Hemoglobin 8.2 g/dL (12.0-15.0); Lymphocyte # 1.71 X10^3/ul (4.0); Lymphocyte % 10.1 % (19-41); Mean Corp Hgb Conc 34.7 g/dL (32-36); Mean Corpuscular Hgb 31.3 pg (27.0-32.0); Mean Corpuscular Volume 90.1 fL (81-99); Mean Platelet Vol. 8.6 fl (6.2-12.0); Monocyte# 0.36 X10^3/uL; Monocyte% 2.1 % (0-10); NRBC Flagged by Analyzer 0 % (0-5); Neutrophil # 14.29 X10^3/uL (2.7-7.7); Neutrophil % 84.3 % (47-70); Platelet Count 157 K/mm3 (150-450); RBC Distribution Width SD 44.8 fl (35.1-43.9); Red Blood Count 2.62 M/mm3 (4.2-5.4)
[2020-09-12 20:10] LABS: Fibrinogen 589 mg/dl (203-444); Partial Thromboplast Time 27.5 Seconds (24.1-36.2)
[2020-09-12 20:11] LABS: International Normalized Ratio 1.1; Prothrombin Time (Protime)PT. 13.2 SECONDS (11.7-14.9)
[2020-09-12] MEDS: fentaNYL 100 MCG/2 ML Ampul 50 MCG IV (20:38)
[2020-09-12] MEDS: Cefazolin 1 GM/50 ML BAG IV (20:38)
[2020-09-12] MEDS: 0.9% Saline Lock 10 ML Syringe IV ×2 (21:38→22:21)
[2020-09-12] MEDS: Acetaminophen 500 MG Tablet 1000 MG PO (22:25)
--- NOTE | 2020-09-12 23:49 | NURSING ---
This RN assuming care of patient at this time. Report received from Andree White.
[2020-09-13] VITALS (7 sets, daily range): BP systolic 81–107; BP diastolic 40–55; PULSE 72–94; RESP 16–18; TEMP 36.1–36.8; O2SAT 97–99
[2020-09-13 02:53] LABS: Hematocrit 23.1 % (37-47); Hemoglobin 8.2 g/dL (12.0-15.0); Mean Corp Hgb Conc 35.5 g/dL (32-36); Mean Corpuscular Hgb 31.1 pg (27.0-32.0); Mean Corpuscular Volume 87.5 fL (81-99); Mean Platelet Vol. 8.6 fl (6.2-12.0); Platelet Count 140 K/mm3 (150-450); RBC Distribution Width SD 42.7 fl (35.1-43.9); Red Blood Count 2.64 M/mm3 (4.2-5.4); White Blood Count 19.1 K/mm3 (4.4-11.0)
[2020-09-13] MEDS: Senna/Docusate Sodium 1 Tablet PO (03:40)
[2020-09-13] MEDS: Naproxen 250 MG Tablet 500 MG PO ×2 (03:40→11:50)
--- NOTE | 2020-09-13 07:32 | NURSING ---
Cumulative EBL calculated by weight during labor. EBL at 1800 on 09/12/20 = 460 ml. aware and continuously monitoring VB with this nurse during [id number]. Pt asymptomatic.
--- NOTE | 2020-09-13 08:55 | PN.OBGYN_ITS ---
Patient Problems: Active and Suspected Problems (Last Updated 09/09/20 @ 14:45 by Katya Spring) hemorrhage (Acute) Uterine atony (Acute) Uterine fibroid during , antepartum (Acute) right lower anterior Placental abruption in third trimester (Acute) recommend STO and serial labs labor in third trimester (Acute) stable 3 cm (Acute) previous care with [facility] Subjective: Patient doing well without complaints. Tolerating PO. Ambulating and voiding without difficulty. feeding well. Denies chest pain, shortness of breath, calf pain/swelling, fevers, chills, lightheadedness. - Physical Exam Vitals/I&O's: Vital Signs Temp Pulse Resp BP Pulse Ox 98.2 F 92 16 105/55 L 100 09/13/20 03:08 09/13/20 03:08 09/13/20 03:08 09/13/20 03:08 09/12/20 22:01 Oxygen Delivery Method Room Air Weight: 129 lb Body Mass Index (BMI) 23.6 Intake and Output for Last 24 Hours 09/11/20 09/12/20 09/13/20 23:59 23:59 23:59 Intake Total 4076.17 / 4076.17 Output Total 1100 / 1100 350 / 350 Balance 2976.17 / 2976.17 -350 / -350 General: Alert, Oriented x3 Laboratory Results 09/12/20 07:50: Blood Type B POSITIVE, Antibody Screen NEGATIVE 09/12/20 07:50: Crossmatch See Detail 09/12/20 12:45: Rubella IgG Antibody Non-Reactive 09/12/20 12:45: RPR Pending 09/12/20 12:45: Chlam trachomat DNA PCR Negative, N.gonorrhoeae DNA (PCR) Negative 09/12/20 12:45: Hep Bs Antigen Non-Reactive, Hepatitis C Antibody Non-Reactive, HIV 1&2 Antibody Non-Reactive 09/12/20 12:45: WBC 12.6 H, RBC 3.27 L, Hgb 10.1 L, Hct 29.7 L, MCV 90.8, MCH 30.9, MCHC 34.0, RDW Std Deviation 45.3 H, RDW Coeff of Valerie 14.1, Plt Count 162, MPV 8.5 09/12/20 18:10: WBC 15.5 H, RBC 3.14 L, Hgb 9.6 L, Hct 28.7 L, MCV 91.4, MCH 30.6, MCHC 33.4, RDW Std Deviation 46.3 H, RDW Coeff of Valerie 14.2, Plt Count 149 L, MPV 8.6, Immature Gran % (Auto) 2.800 H, Neut % (Auto) 83.0 H, Lymph % (Auto) 11.7 L, [place] % (Auto) 2.0, Eos % (Auto) 0.1, Baso % (Auto) 0.4, Absolute Neuts (auto) 12.9 H, Absolute Lymphs (auto) 1.81, Nucleated RBC % 0 09/12/20 18:10: Fibrinogen 702 H 09/12/20 19:38: WBC 17.0 H, RBC 2.62 L, Hgb 8.2 L, Hct 23.6 L, MCV 90.1, MCH 31.3, MCHC 34.7, RDW Std Deviation 44.8 H, RDW Coeff of Valerie 14.0, Plt Count 157, MPV 8.6, Immature Gran % (Auto) 3.200 H, Neut % (Auto) 84.3 H, Lymph % (Auto) 10.1 L, [place] % (Auto) 2.1, Eos % (Auto) 0.1, Baso % (Auto) 0.2, Absolute Neuts (auto) 14.3 H, Absolute Lymphs (auto) 1.71, Nucleated RBC % 0 09/12/20 19:38: PT 13.2, INR 1.1, APTT 27.5, Fibrinogen 589 H 09/13/20 02:48: WBC 19.1 H, RBC 2.64 L, Hgb 8.2 L, Hct 23.1 L, MCV 87.5, MCH 31.1, MCHC 35.5, RDW Std Deviation 42.7, RDW Coeff of Valerie 14.0, Plt Count 140 L, MPV 8.6 Current Medications Acetaminophen (Acetaminophen 500 Mg Tablet) 1,000 mg PO Q8H PRN PRN PRN Reason: Pain Score 1-3 Last Admin: 09/12/20 22:25 Dose: 1,000 mg Documented by: Bisacodyl (Bisacodyl 10 Mg Suppository) 10 mg RECTAL UD PRN PRN Reason: If no BM Dibucaine (Dibucaine 30 Gm Tube) 1 applic TOPICAL TID PRN PRN; Protocol PRN Reason: Discomfort Hydrocortisone (Hydrocortisone 2.5% Crm) 1 applic TOPICAL TID PRN PRN; Protocol PRN Reason: Discomfort Measles/Mumps/Rubella Vaccine Live (Measles,Mumps&Rubella Vaccine 0.5 Ml Vial) 0.5 ml SC .ONCE ONE Stop: 09/13/20 10:01 Last Admin: 09/13/20 06:07 Dose: Not Given Documented by: Methylergonovine Maleate (Methylergonovine 0.2 Mg/Ml Ampul) 0.2 mg IM X1 PRN PRN Reason: Excess bleeding/uterine atony Naproxen (Naproxen 250 Mg Tablet) 500 mg PO BID PRN PRN PRN Reason: Pain Score 1-10 Last Admin: 09/13/20 03:40 Dose: 500 mg Documented by: Ondansetron HCl (Ondansetron 4 Mg/2 Ml Vial) 4 mg IV Q4H PRN PRN PRN Reason: Nausea Oxycodone HCl (Oxycodone 5 Mg Tablet) 5 mg PO Q4H PRN PRN PRN Reason: Pain Score 6-10 Senna/Docusate Sodium (Senna/Docusate Sodium 1 Tablet) 1 - 2 tablet PO DAILY PRN PRN PRN Reason: Constipation Last Admin: 09/13/20 03:40 Dose: 2 tablet Documented by: Simethicone (Simethicone 80 Mg Tablet) 80 mg PO PCHS PRN PRN Reason: Indigestion/Stomach pain Sodium Chloride (0.9% Saline Lock 10 Ml Syringe) 5 - 15 ml IV UD PRN PRN Reason: SALINE FLUSH Last Admin: 09/12/20 22:21 Dose: 10 ml Documented by: Medical Necessity - Tobacco Use Smoking Status: Never smoker Assessment/Plan All Active Problems (Last Updated 09/09/20 @ 14:45 by Katya Spring) hemorrhage (Acute) Uterine atony (Acute) Uterine fibroid during , antepartum (Acute) Placental abruption in third trimester (Acute) labor in third trimester (Acute) (Acute) s/p PPD # 1 1. routine post delivery care 2. breast feeding- support given 3. rh positive 4. anemia secondary to acute on chronic blood loss- repeat hg this am, s/p 1 u transfused PRBC
[2020-09-13] MEDS: 0.9% Saline Lock 10 ML Syringe IV ×3 (10:42→22:35)
--- NOTE | 2020-09-13 14:45 | CASEMGMT ---
Social Work-Suicide Risk Assessment SUICIDAL IDEATION 1. Wish to be Have you wished you were or wished you could go to sleep and not wake up? Yes If yes, describe: Patient reports general thoughts of being better off . Lifetime: Time He/She [place] Most Suicidal: Yes Past 1 month: Yes Please Describe if yes: Patient reports over the last couple of weeks should be better off . 2. Non-Specific Active Suicidal Thoughts Have you actually had any thoughts of killing yourself? No Lifetime: Time He/She [place] Most Suicidal: No Past 1 month: No Please Describe if yes: N/A 3. Active Suicidal Ideation with Any Methods (Not Plan) without Intent to Act Have you been thinking about how you might do this? No Lifetime: Time He/She [place] Most Suicidal: No Past 1 month: No Please Describe if yes: N/A 4. Active Suicidal Ideation with Some Intent to Act, without Specific Plan Have you had these thoughts and had some intention of acting on them? No Lifetime: Time He/She [place] Most Suicidal: No Past 1 month: No Please Describe if yes: N/A 5. Active Suicidal Ideation with Specific Plan and Intent Have you started to work out or worked out the details of how to kill yourself? Do you intend to carry out this plan? No Lifetime: Time He/She [place] Most Suicidal: No Past 1 month: No Please Describe if yes: N/A INTENSITY OF IDEATION Lifetime - Most Severe Ideation: 1 Recent - Most Severe Ideation: 1 Frequency How many times have you had these thoughts? Lifetime: Same as answer and recent, in the last month. Denies thoughts prior to within the last month. Recent, in last month: 2-5 times a week Duration When you have the thoughts how long do they last? Lifetime: Same as recent Recent: some of the time Controllability Could/can you stop thinking about killing yourself or wanting to if you want to? Lifetime: Same as recent Recent: Does not attempt to control thoughts Deterrents Are there things - anyone or anything (e.g., family, samaritan, pain of ) - that stopped you from wanting to or acting on thoughts of committing suicide? Lifetime: Same as recent Recent: Deterrents definitely stopped from attempting suicide. Reasons for Ideation What sort of reasons did you have for thinking about wanting to or killing yourself? Was it to end the pain or stop the way you were feeling (in other words you couldn?t go on living with this pain or how you were feeling) or was it to get attention, revenge or a reaction from others? Or both? Lifetime: Same as recent Recent: Mostly 2 and or stop the pain (reports was feeling overwhelmed and stressed from medical issues relating to the end of , and worry about the baby) ____ _? 2008 [facility] [id number] Recent - Clinical (Version 10/13/08) Page 1 of 2___ SUICIDAL BEHAVIOR Actual attempt: Lifetime: Denies Past 3 months: Denies Actual Attempt: Patient denies any history of action to harm, self injure, or complete suicide. Has subject engaged in Non-Suicidal Self-Injurious Behavior? Patient denies. Interrupted Attempt: Has there been a time when you started to do something to end your life but someone or something stopped you before you did anything? Patient denies If yes, describe: N/A Total # of Interrupted is reported as : 0 Aborted or Self-Interrupted Attempt: Has there been a time when you started to do something to try to end your life, but you stopped yourself before you did anything? Patient denies If yes, describe: N/A Number self-interrupted attempts: 0 Preparatory Acts or Behavior: Have you taken any steps towards making a suicide attempt or preparing to kill yourself (such as collecting pills, getting a gun, giving valuables away or writing a suicide note)? Patient denies If yes, describe: N/A Lethality History: Actual lethality/medical damage: No physical damage, as patient denies any history of attempts. Score 0. Potential Lethality: Recent -0 Lifetime -0 Summary: Patient reports she has had general thoughts of feeling as though she would be better off over the last couple of weeks. Patient denies any thoughts of hurting herself and reports the frequency as several days. Patient reports that the stress of the medical issues occurring at the end of , concern for labor, and not knowing what was happening with the baby was creating stress. Patient was supposed to be limiting her work, which patient reports impacted the patient's mood. Patient reported to feel down and trouble concentrating over the last few days, when thinking about the medical issues going on and how this was interfering with her work at home. Patient reports that now that the baby has been born, she no longer has thoughts of being better off . Reports to have some relief now that the baby is here and doing okay. Patient reports she was able to talk with her about these feelings and thoughts when they were occurring.n Reports her was supportive. Patient reports to be feeling better, and hopeful for continued recovery of self and baby. Patient verbally contracts that she will speak with hospital staff should any negative thinking or thoughts of being arise again. Patient able to spontaneously state that if she was at home, and started having these types of thoughts again, would seek out support from within her family. Patient denies any biological family history of any mental health issues. Denies any history of planning, or attempts/action in herself. No active thoughts, plans, intent for suicide. No need for one-on-one supervision. -JESUS Driver, KNITTED CLOTH EXAMINER *Information in this note generated with the [employer] system.*
--- NOTE | 2020-09-13 15:00 | CASEMGMT ---
Social Work Assessment Labor and Delivery Unit Patient Address: [address] , [place] [address] Phone number: [phone], message line Date of Referral: 09/13/2020 Time of Referral: 251 Referred By: Dr. Quintanilla Date of Intervention: 09/13/2020 Time of Intervention: 1444 Reason for Referral: [New diagnosis/maternal affect. Also received referral this date for PHQ-9 follow-up. History obtained from: Medical records and mother of baby (DELMI) Syl Armas Household composition: DELMI reports to live with the father of baby (FOB). Patient's parent/guardian status: DELMI, who is a 24-year-old female, to the FOB Royce Armas is August 2019. DELMI denies any type of abuse, control, or intimidation in this relationship. DELMI and FOB are both of the [facility] community. baby is the first child for both parents. Time of assessment the baby still has no name. Medical History: DELMI is 1, para 0 now 1 after delivering a baby boy. Delivery occurred at 33 weeks gestation on 09/12/2020. Baby weighed 5 pounds 3 ounces at . Apgars 8 and 9 at 1 and 5 minutes of life respectively. DELMI received care with a bricklayer helper Sherri Garcia. DELMI was transferred to [facility] in the last month due to concerns of out labor. Educational Status: DELMI reports completion of the eighth grade, which is normal for the [facility] community. Financial Status: LYNNETTE works in [employer]. DELMI works at the home. Infant Supplies: DELMI reports to have baby closed that she is going to be getting from her own mother, as MOB younger sibling is age 4. DELMI reports they will be borrowing a car seat for the baby. Parents still need to get safe sleep space for the baby, but DELMI reports this will not be an issue. DELMI is planning on breast-feeding. Childcare/Caregiver(s): DELMI will be the primary caregiver. This typewriter aligner has received reports that LYNNETTE has been engaged with baby care and has done skin to skin. 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 Programs/Agencies Involved: No program or agency involvement. No interested referrals to government assisted programs. Behavioral Health Issues: Mental Health History: MOB admits to having some depression over the last couple of weeks, and directly relates this to the stress that was occurring relating to and the limitations then surrounding MOB completing her work at home. MOB reports there is a lot of worry during this time. Please refer to social work documentation done previously this date for further details regarding suicide risk assessment. MOB score was a 5 on the PHQ-9 which falls in the mild category of depression. Substance Use History: MOB denies history. Family History: MOB denies. Also denies any family history of depression. Will be reports the FOB is on medication for depression, anxiety, sleep disturbance. Drug Screens: Not completed Family/Social Stressors: Threatened labor 1 hour 43-week delivery. Limited ability to perform work at home over the last couple of weeks. Worry about the unknown as to what was happening with . Baby now in special care nursery. Support Systems: MOB reports the FOB, MOB's mother, and a sister are supports. MOB reports to have one of her sisters coming over the house upon return home to be a helper for about 6 weeks. ASSESSMENT: Met with MOB at the baby's bedside in the special care nursery. Educated MOB that this typewriter aligner spoke to social services analyst for the [facility] labor and delivery unit, and for the [facility] nursery. Educated MOB to reason for visit, and need to follow-up on the depression screen completed earlier this date. Refer to previous social work documentation this date for details of the suicide risk assessment completed. MOB reports she will have support at home going. Reports that although she does not yet have needed baby supplies, the family will be able to secure this. MOB endorses some depression during the end of the in direct relation to some of the medical complications MOB was having and how this was impacting MOB normal and daily routine at home. MOB reports to have some relief now that the baby is born, and denies any specific worries even with the baby being in the special care nursery. MOB was able to verbally state that if she starts. Feeling poorly again, and has any thoughts of wanting to be she would talk with hospital staff or if at home would talk with her support system. MOB reports to be feeling a little bit better, and reports believe that we will continue to feel better as the days go on. Briefly touched on the topic of depression with the MOB, and let MOB know that while the baby is in the special care nursery social work will continue to follow and will follow up with a home-going packet of resources. MOB nodded head in agreement with plan for social work follow-up via the special care nursery. PLAN: MOB will discharge home when medically ready. Social work will continue following this family while the baby is admitted to the special care nursery. MOB will provide be provided at home going packet on mood and anxiety is disorders, and a list of resources for [facility]. No other services requested or indicated. -BRITTNI Driver, SIGNS CLEANER *Information documented in this assessment generated with [employer]*
[2020-09-13 21:44] LABS: Absolute Lymphocyte Count 2.23 X10^3/uL (0.83-4.51); Absolute Neutrophil Count 11.5 X10^3/uL (2.0-7.7); Basophil# 0.04 X10^3/uL; Basophil% 0.3 % (0-1); Eosinophil# 0.05 X10^3/uL; Eosinophils% 0.3 % (0-5); Hematocrit 20.4 % (37-47); Hemoglobin 6.9 g/dL (12.0-15.0); Lymphocyte # 2.23 X10^3/ul (4.0); Lymphocyte % 14.7 % (19-41); Mean Corp Hgb Conc 33.8 g/dL (32-36); Mean Corpuscular Hgb 30.3 pg (27.0-32.0); Mean Corpuscular Volume 89.5 fL (81-99); Mean Platelet Vol. 8.7 fl (6.2-12.0); Monocyte# 0.92 X10^3/uL; Monocyte% 6.1 % (0-10); NRBC Flagged by Analyzer 0 % (0-5); Platelet Count 143 K/mm3 (150-450); RBC Distribution Width CV 14.7 % (11.6-14.6); RBC Distribution Width SD 45.6 fl (35.1-43.9); Red Blood Count 2.28 M/mm3 (4.2-5.4); White Blood Count 15.1 K/mm3 (4.4-11.0)
[2020-09-14] MEDS: 0.9% Saline Lock 10 ML Syringe IV ×3 (00:07→00:39)
[2020-09-14 00:35] VITALS: BP 96/48; PULSE 75; RESP 16; TEMP 36; O2SAT 96
[2020-09-14 01:23] VITALS: BP 91/49; PULSE 79; RESP 16; TEMP 36.2; O2SAT 97
[2020-09-14 04:40] VITALS: BP 99/61; PULSE 82; RESP 18; TEMP 36.2; O2SAT 99
[2020-09-14 04:53] LABS: Hemoglobin 8.4 g/dL (12.0-15.0); Mean Corp Hgb Conc 33.6 g/dL (32-36); Mean Corpuscular Hgb 29.8 pg (27.0-32.0); Mean Corpuscular Volume 88.7 fL (81-99); Mean Platelet Vol. 8.5 fl (6.2-12.0); Platelet Count 126 K/mm3 (150-450); RBC Distribution Width CV 15.2 % (11.6-14.6); RBC Distribution Width SD 46.6 fl (35.1-43.9); Red Blood Count 2.82 M/mm3 (4.2-5.4); White Blood Count 14.7 K/mm3 (4.4-11.0)
--- NOTE | 2020-09-14 08:21 | PN.OBGYN_ITS ---
Patient Problems: Active and Suspected Problems (Last Updated 09/09/20 @ 14:45 by Katya Spring) hemorrhage (Acute) Uterine atony (Acute) Uterine fibroid during , antepartum (Acute) right lower anterior Placental abruption in third trimester (Acute) recommend STO and serial labs labor in third trimester (Acute) stable 3 cm (Acute) previous care with Branden Subjective: Patient doing well without complaints. Tolerating PO. Ambulating and voiding without difficulty. feeding well. Denies chest pain, shortness of breath, calf pain/swelling, fevers, chills, lightheadedness. - Physical Exam Vitals/I&O's: Vital Signs Temp Pulse Resp BP Pulse Ox 97.1 F L 82 18 99/61 99 09/14/20 04:40 09/14/20 04:40 09/14/20 04:40 09/14/20 04:40 09/14/20 04:40 Oxygen Delivery Method Room Air Weight: 129 lb Body Mass Index (BMI) 23.6 Intake and Output for Last 24 Hours 09/12/20 09/13/20 09/14/20 23:59 23:59 23:59 Intake Total 4076.17 / 4076.17 0.25 / 0.25 296 / 296 Output Total 1100 / 1100 350 / 350 Balance 2976.17 / 2976.17 -349.75 / -349.75 296 / 296 General: Alert, Oriented x3 Laboratory Results 09/12/20 07:50: Crossmatch See Detail 09/13/20 21:38: WBC 15.1 H, RBC 2.28 L, Hgb 6.9 L, Hct 20.4 L, MCV 89.5, MCH 30.3, MCHC 33.8, RDW Std Deviation 45.6 H, RDW Coeff of Valerie 14.7 H, Plt Count 143 L, MPV 8.7, Immature Gran % (Auto) 2.600 H, Neut % (Auto) 76.0 H, Lymph % (Auto) 14.7 L, [place] % (Auto) 6.1, Eos % (Auto) 0.3, Baso % (Auto) 0.3, Absolute Neuts (auto) 11.5 H, Absolute Lymphs (auto) 2.23, Nucleated RBC % 0 09/14/20 04:40: WBC 14.7 H, RBC 2.82 L, Hgb 8.4 L, Hct 25.0 L, MCV 88.7, MCH 29.8, MCHC 33.6, RDW Std Deviation 46.6 H, RDW Coeff of Valerie 15.2 H, Plt Count 126 L, MPV 8.5 Current Medications Acetaminophen (Acetaminophen 500 Mg Tablet) 1,000 mg PO Q8H PRN PRN PRN Reason: Pain Score 1-3 Last Admin: 09/12/20 22:25 Dose: 1,000 mg Documented by: Bisacodyl (Bisacodyl 10 Mg Suppository) 10 mg RECTAL UD PRN PRN Reason: If no BM Dibucaine (Dibucaine 30 Gm Tube) 1 applic TOPICAL TID PRN PRN; Protocol PRN Reason: Discomfort Hydrocortisone (Hydrocortisone 2.5% Crm) 1 applic TOPICAL TID PRN PRN; Protocol PRN Reason: Discomfort Sodium Chloride () 500 mls @ 100 mls/hr IV .Q5H SHELLEY Last Infusion: 09/13/20 22:38 Dose: Infused Documented by: Methylergonovine Maleate (Methylergonovine 0.2 Mg/Ml Ampul) 0.2 mg IM X1 PRN PRN Reason: Excess bleeding/uterine atony Naproxen (Naproxen 250 Mg Tablet) 500 mg PO BID PRN PRN PRN Reason: Pain Score 1-10 Last Admin: 09/13/20 11:50 Dose: 500 mg Documented by: Ondansetron HCl (Ondansetron 4 Mg/2 Ml Vial) 4 mg IV Q4H PRN PRN PRN Reason: Nausea Oxycodone HCl (Oxycodone 5 Mg Tablet) 5 mg PO Q4H PRN PRN PRN Reason: Pain Score 6-10 Senna/Docusate Sodium (Senna/Docusate Sodium 1 Tablet) 1 - 2 tablet PO DAILY PRN PRN PRN Reason: Constipation Last Admin: 09/13/20 03:40 Dose: 2 tablet Documented by: Simethicone (Simethicone 80 Mg Tablet) 80 mg PO PCHS PRN PRN Reason: Indigestion/Stomach pain Sodium Chloride (0.9% Saline Lock 10 Ml Syringe) 5 - 15 ml IV UD PRN PRN Reason: SALINE FLUSH Last Admin: 09/14/20 00:39 Dose: 10 ml Documented by: Medical Necessity - Tobacco Use Smoking Status: Never smoker Assessment/Plan All Active Problems (Last Updated 09/09/20 @ 14:45 by Katya Spring) hemorrhage (Acute) Uterine atony (Acute) Uterine fibroid during , antepartum (Acute) Placental abruption in third trimester (Acute) labor in third trimester (Acute) (Acute) s/p PPD # 2 1. routine post delivery care 2. breast feeding- support given 3. rh positive 4. anemia secondary to acute on chronic blood loss/PPH- s/p 2 u transfused PRBC dc to hot status today
--- NOTE | 2020-09-14 08:22 | DCINST_ITS ---
Discharge Diet: No Restrictions Discharge Activity: Return to Normal Activity, May not drive while taking narcotic pain medications., May Shower May resume sexual activity in: 4-6 weeks Call your doctor if your incision/area has: Continuous Slow Oozing, Sudden Increased Bleeding, Increased Pain/ Swelling, Increased Redness, Foul Smelling Discharge Additional Instructions: If you experience any of the following, contact your healthcare provider. * Bleeding that soaks a pad every hour for 2 hours * Fever 100.4 or higher * Unrelieved incision or abdominal pain * Swelling, redness, discharge or bleeding from your incision or episiotomy site * Your incision begins to separate * Problems urinating (including inability to urinate or burning while urinating). * Visual changes * Severe headache * Flu-like symptoms * Pain or redness in one of both of your breasts * Pain, warmth, tenderness or swelling in your legs, especially the calf area * Frequent nausea and vomiting * Symptoms of depression or anxiety If you experience any of the following, call 911 or go to the nearest Emergency Room. * Chest pain * Problems breathing * Seizure activity * Partial or complete paralysis of a body part, slurred speech, weakness or drooping of the face, or a sudden inability to walk or hold your balance Allergies/Adverse Reactions: Allergies No Known Allergies Allergy (Verified 09/12/20 07:30) Medications to take at Discharge ferrous sulfate 325 mg (65 mg iron) tablet 325 mg PO DAILY 09/09/20 omega-3 fatty acids 1,000 mg capsule 1,000 mg PO DAILY 09/09/20 vitamin#30 30 mg iron-10 mg iron-folic acid 1 mg-omg3 capsule 1 cap PO DAILY 09/09/20 Please Follow Up With: Dee Quintanilla MD - [phone] When: Call to make an appointment with your doctor in 6 weeks. If you had elevated Blood pressure or 4th degree laceration you will need to be seen in 2 weeks. Primary Care Physician: Care Physician,No Primary [Primary Care Provider] - Test Results: Test results from this visit will be discussed in further detail at your follow- up appointment, if applicable.
[2020-09-14 09:42] VITALS: BP 100/55; PULSE 92; RESP 16; TEMP 36.6
[2020-09-14 15:15] VITALS: BP 101/49; PULSE 92; RESP 16; TEMP 36.7
--- NOTE | 2020-09-14 18:08 | NURSING ---
Pt nonimmune, but refused MMR
[2020-09-15 02:39] LABS: Rapid Plasmin Reagin (RPR) NONREACTIVE (NONREACTIVE)
== END 2020-09-14 18:07 | disposition home or self-care (01) | DRG 805 ==
LOC: WPOUT 09:05 → WP 09:05
PROVIDERS: Admitting Provider Obstetrics & Gynecology; Referring Provider Obstetrics & Gynecology; Visit Provider Obstetrics & Gynecology
DX: O60.14X0 Preterm labor third trimester with preterm delivery third trimester, not applicable or unspecified (principal); O45.93 Premature separation of placenta, unspecified, third trimester; Z37.0 Single live birth; D62 Acute posthemorrhagic anemia; O72.1 Other immediate postpartum hemorrhage; Z3A.33 33 weeks gestation of pregnancy; O34.13 Maternal care for benign tumor of corpus uteri, third trimester; D25.9 Leiomyoma of uterus, unspecified; O99.02 Anemia complicating childbirth; O76 Abnormality in fetal heart rate and rhythm complicating labor and delivery; O69.81X0 Labor and delivery complicated by cord around neck, without compression, not applicable or unspecified
CPT/HCPCS: 85025; 85027; 85384; 85610; 85730; 86592; 86703; 86762; 86803; 86850; 86900; 86901; 86920; 86922; 87340; 87491; 87591; 99218; J7030; J7120; P9016; A4216; G0378; J0290; J0702